=== PATIENT | male | born 1980 | race Caucasian/White ===

== ENCOUNTER → 2023-01-24 | Outpatient (REF) | LOC: M PLAIMG 09:34 | PROVIDERS: ATTEND Internal Medicine | DX: Z00.00 Encounter for general adult medical examination without abnormal findings (principal) ==

== ENCOUNTER → 2023-06-21 | Outpatient (REF) | LOC: M PLAIMG 11:13 | PROVIDERS: ATTEND Internal Medicine | DX: M19.90 Unspecified osteoarthritis, unspecified site (principal) ==